=== PATIENT | male | born 1965 | race Caucasian/White ===

== ENCOUNTER 2017-01-24 10:19 | Emergency (ER) | payer MEDICAID ==
[2017-01-24] MEDS ORDERED: Aspirin 81 MG Tab.Chew PO ONE (10:33)
--- NOTE | 2017-01-24 10:33 | EDM.PDOC ---
ED HISTORY OF PRESENT ILLNESS - General Chief Complaint: Chest Pain Stated Complaint: [id number] CHEST PAINS 4-5 DAYS Time Seen by Provider: 01/24/17 10:25 Source of Information: Reports: Patient, Old records, RN, RN notes reviewed History Limitations: Reports: No limitations - History of Present Illness INITIAL COMMENTS - FREE TEXT/NARRATIVE: C/O chest pain on & off for 1 week. At time he reports experiencing some nausea and SOB. Denies cough, vomiting, fever/chills, palpitations, edema, or syncope/ dizziness. Pt states that he has no teeth and doens't wear dentures and can't chew his food well enough. He states that he frequently has food get stuck in his esophagus and has to work at it to get it to go down. He has not had to seek medical care for esophageal food impacts. Timing/Duration: Reports: Week(s): (1), Intermittent Location, General: Reports: chest Quality: Reports: Ache, Dull, Pressure Improves with: Reports: None Worsens with: Reports: None Associated Symptoms (General): Reports: no other symptoms - Related Data Allergies/ADRs: Allergies Allergy/AdvReac Type Severity Reaction Status Date / Time Penicillins Allergy Cannot Verified 01/24/17 10:24 Remember Home Meds: Home Meds Ibuprofen 01/24/17 [History] Past Medical History Neurological History: Reports: CVA Social & Family History - Family History Family Medical History: Noncontributory - Tobacco Use Smoking Status *Q: Former Smoker Tobacco Use Within Last Twelve Months: Cigarettes Years of Tobacco use: 15 Used Tobacco, but Quit: Yes Month Tobacco Last Used: August 2016 Second Hand Smoke Exposure: Yes - Caffeine Use Caffeine Use: Reports: Soda Other Caffeine Use: 2 cokes/day - Alcohol Use Days Per Week of Alcohol Use: 1 Number of Drinks Per Day: 6 Total Drinks Per Week: 6 - Recreational Drug Use Recreational Drug Use: No Drug Use in Last 12 Months: Yes Recreational Drug Type: Reports: Marijuana/Hashish Recreational Drug Use Frequency: Socially - Living Situation & Occupation Living situation: Reports: Occupation: employed ED ROS GENERAL - Review of Systems Review Of Systems: ROS reveals no pertinent complaints other than HPI. ED EXAM, GENERAL - Physical Exam Exam: See Below Exam Limited By: No limitations General Appearance: alert, WD/WN, no apparent distress Nose: normal inspection, normal mucosa, no blood Throat/Mouth: Normal lips, Normal gums, Normal oropharynx, Normal voice, No airway compromise. No: Normal teeth (no teeth) Head: atraumatic, normocephalic Neck: normal inspection, supple, non-tender, full range of motion. No: lymphadenopathy (L), lymphadenopathy (R), thyromegaly Respiratory/Chest: no respiratory distress, no accessory muscle use, chest non- tender, decreased breath sounds, crackles, prolonged expiration Cardiovascular: normal peripheral pulses, regular rate, rhythm, no edema, no gallop, no JVD, no murmur, no rub GI/Abdominal: normal bowel sounds, soft, non tender, no organomegaly, no distention, no abnormal bruit, no mass Back Exam: normal inspection, full range of motion, NT Extremities: normal inspection, normal range of motion, non-tender, normal capillary refill, no pedal edema Neurological: alert, oriented, CN II-XII intact, normal cognition, normal gait, no motor/sensory deficits Psychiatric: normal affect, normal mood Skin Exam: Warm, Dry, Intact, Normal color, No rash EKG INTERPRETATION EKG Date: 01/24/17 Time: 10:26 Rhythm: other (SR) Rate (beats/min): 57 [place]: normal P-wave: present QRS: normal ST-T: normal QT: normal Comparison: NA - no prior EKG EKG Interpretation Comments: No ischemic changes. Course - Vital Signs Last Recorded V/S: Last Vital Signs Temp 36.4 C 01/24/17 10:28 Pulse 51 L 01/24/17 13:55 Resp 18 01/24/17 13:55 BP 129/92 H 01/24/17 13:55 Pulse Ox 95 01/24/17 13:55 - Orders/Labs/Meds Orders: Active Orders 24 hr Category Date Time Status EKG 12 Lead [EKG Documentation Completion] [RC] STAT Care 01/24/17 10:33 Active Peripheral IV Care [RC] . DIRECTED Care 01/24/17 10:34 Active Chest wo Cont [CT] Stat Exams 01/24/17 11:18 Taken UGI wo KUB [CR] Stat Exams 01/24/17 11:15 Taken Sodium Chloride 0.9% [Saline Flush] Med 01/24/17 10:34 Active 10 ml FLUSH ASDIRECTED PRN Peripheral IV Insertion Adult [OM.PC] Stat Oth 01/24/17 10:33 Ordered Medication Orders Sodium Chloride (Saline Flush) 10 ml FLUSH ASDIRECTED PRN PRN Reason: Keep Vein Open Last Admin: 01/24/17 10:43 Dose: 10 ml Labs: Laboratory Tests 01/24/17 01/24/17 01/24/17 Range/Units 10:35 10:35 10:35 WBC 7.8 (5.0-10.0) 10^3/uL RBC 4.83 (4.6-6.2) 10^6/uL Hgb 15.2 (14.0-18.0) g/dL Hct 43.4 (40.0-54.0) % MCV 89.9 (80-100) fL MCH 31.5 (27.0-34.0) pg MCHC 35.0 (33.0-35.0) g/dL Plt Count 207 (150-450) 10^3/uL Neut % (Auto) 50.5 (42.2-75.2) % Lymph % (Auto) 33.2 (20.5-50.1) % [place] % (Auto) 10.6 H (2-8) % Eos % (Auto) 5.1 H (1.0-3.0) % Baso % (Auto) 0.6 (0.0-1.0) % PT 10.1 (9.0-12.0) SEC INR 1.0 (0.9-1.2) APTT 26.0 (22.0-34.0) SEC D-Dimer, Quantitative < 100 (0-400) ng/mL Sodium 137 (135-145) mmol/L Potassium 4.0 (3.6-5.0) mmol/L Chloride 104 (101-111) mmol/L Carbon Dioxide 27.0 (21.0-31.0) mmol/L Anion Gap 10.0 BUN 12 (7-18) mg/dL Creatinine 0.8 (0.6-1.3) mg/dL Est Cr Clr Drug Dosing 120.68 mL/min Estimated GFR (MDRD) > 60 BUN/Creatinine Ratio 15.00 Glucose 106 H (74-105) mg/dL Calcium 9.1 (8.4-10.2) mg/dl Total Bilirubin 0.7 (0.2-1.0) mg/dL AST 22 (10-42) IU/L ALT 39 (10-60) IU/L Alkaline Phosphatase 42 (42-121) IU/L Troponin I < 0.02 (0.00-0.02) ng/ml B-Natriuretic Peptide 24 (0-100) pg/ml Total Protein 6.8 (6.7-8.2) g/dl Albumin 4.1 (3.2-5.5) g/dl Globulin 2.7 Albumin/Globulin Ratio 1.52 Amylase 41 (28-100) U/L Lipase 24 (22-51) U/L Urine Color (YELLOW) Urine Appearance (CLEAR) Urine pH (5.0-9.0) Ur Specific Lipan (1.005-1.030) Urine Protein (NEGATIVE) Urine Glucose (UA) (NEGATIVE) Urine Ketones (NEGATIVE) Urine Occult Blood (NEGATIVE) Urine Nitrite (NEGATIVE) Urine Bilirubin (NEGATIVE) Urine Urobilinogen (0.2-1.0) mg/dL Ur Leukocyte Esterase (NEGATIVE) Urine RBC /HPF Urine WBC (0-5/HPF) /HPF Ur Epithelial Cells /HPF Urine Opiates Screen (NEGATIVE) Ur Oxycodone Screen (NEGATIVE) Urine Methadone Screen (NEGATIVE) Ur Barbiturates Screen (NEGATIVE) U Tricyclic Antidepress (NEGATIVE) Ur Phencyclidine Scrn (NEGATIVE) Ur Amphetamine Screen (NEGATIVE) U Methamphetamines Scrn (NEGATIVE) Urine MDMA Screen (NEGATIVE) U Benzodiazepines Scrn (NEGATIVE) Urine Cocaine Screen (NEGATIVE) U Marijuana (THC) Screen (NEGATIVE) 01/24/17 01/24/17 Range/Units 12:55 12:55 WBC (5.0-10.0) 10^3/uL RBC (4.6-6.2) 10^6/uL Hgb (14.0-18.0) g/dL Hct (40.0-54.0) % MCV (80-100) fL MCH (27.0-34.0) pg MCHC (33.0-35.0) g/dL Plt Count (150-450) 10^3/uL Neut % (Auto) (42.2-75.2) % Lymph % (Auto) (20.5-50.1) % [place] % (Auto) (2-8) % Eos % (Auto) (1.0-3.0) % Baso % (Auto) (0.0-1.0) % PT (9.0-12.0) SEC INR (0.9-1.2) APTT (22.0-34.0) SEC D-Dimer, Quantitative (0-400) ng/mL Sodium (135-145) mmol/L Potassium (3.6-5.0) mmol/L Chloride (101-111) mmol/L Carbon Dioxide (21.0-31.0) mmol/L Anion Gap BUN (7-18) mg/dL Creatinine (0.6-1.3) mg/dL Est Cr Clr Drug Dosing mL/min Estimated GFR (MDRD) BUN/Creatinine Ratio Glucose (74-105) mg/dL Calcium (8.4-10.2) mg/dl Total Bilirubin (0.2-1.0) mg/dL AST (10-42) IU/L ALT (10-60) IU/L Alkaline Phosphatase (42-121) IU/L Troponin I (0.00-0.02) ng/ml B-Natriuretic Peptide (0-100) pg/ml Total Protein (6.7-8.2) g/dl Albumin (3.2-5.5) g/dl Globulin Albumin/Globulin Ratio Amylase (28-100) U/L Lipase (22-51) U/L Urine Color Yellow (YELLOW) Urine Appearance Clear (CLEAR) Urine pH 7.5 (5.0-9.0) Ur Specific Lipan 1.015 (1.005-1.030) Urine Protein Negative (NEGATIVE) Urine Glucose (UA) Negative (NEGATIVE) Urine Ketones Negative (NEGATIVE) Urine Occult Blood Negative (NEGATIVE) Urine Nitrite Negative (NEGATIVE) Urine Bilirubin Negative (NEGATIVE) Urine Urobilinogen 0.2 (0.2-1.0) mg/dL Ur Leukocyte Esterase Negative (NEGATIVE) Urine RBC Not seen /HPF Urine WBC Not seen (0-5/HPF) /HPF Ur Epithelial Cells Rare /HPF Urine Opiates Screen Positive H (NEGATIVE) Ur Oxycodone Screen Negative (NEGATIVE) Urine Methadone Screen Negative (NEGATIVE) Ur Barbiturates Screen Negative (NEGATIVE) U Tricyclic Antidepress Negative (NEGATIVE) Ur Phencyclidine Scrn Negative (NEGATIVE) Ur Amphetamine Screen Negative (NEGATIVE) U Methamphetamines Scrn Negative (NEGATIVE) Urine MDMA Screen Negative (NEGATIVE) U Benzodiazepines Scrn Negative (NEGATIVE) Urine Cocaine Screen Negative (NEGATIVE) U Marijuana (THC) Screen Positive H (NEGATIVE) Meds: Medications Generic Name Dose Route Start Last Admin Trade Name Freq PRN Reason Stop Dose Admin Sodium Chloride 10 ml 01/24/17 10:34 01/24/17 10:43 Saline Flush FLUSH 10 ml ASDIRECTED PRN Administration Keep Vein Open Discontinued Medications Generic Name Dose Route Start Last Admin Trade Name Freq PRN Reason Stop Dose Admin Aspirin 324 mg 01/24/17 10:33 01/24/17 10:42 Aspirin PO 01/24/17 10:34 324 mg ONETIME ONE Administration Barium Sulfate 355 ml 01/24/17 11:18 01/24/17 12:27 Liquid E-Z Paque PO 01/24/17 11:19 355 ml PREPRO ONE Administration Morphine Sulfate 4 mg 01/24/17 11:10 01/24/17 11:17 Morphine IVPUSH 01/24/17 11:11 4 mg ONETIME ONE Administration Nitroglycerin 0.4 mg 01/24/17 10:34 01/24/17 11:03 Nitrostat SL 01/24/17 10:35 0.4 mg Q5M ONE Administration Ondansetron HCl 4 mg 01/24/17 11:10 01/24/17 11:15 Zofran IV 01/24/17 11:11 4 mg ONETIME ONE Administration - Radiology Interpretation Free Text/Narrative:: CXR: no acute process per Rad. report. UGI: no stricture, obstruction, or acute findings per Rad. report. CT Chest: no acute findings, see Rad. report. - Re-Assessments/Exams Free Text/Narrative Re-Assessment/Exam: 01/24/17 14:13 I explained the exam findings, results of all diagnostic tests, working diagnosis, and any potential or additionally considered diagnoses, treatment/ disposition plan, self/home care instructions, rational for the diagnosis/ treatment plan/disposition plan, anticipated course of illness, and follow up instructions to the pt and/or pts family or guardian. Pt has no teeth, and his dentures do not fit, so he doesn't wear them. He is unable to adequately chew his food, and has frequent episodes of self limiting esophageal food impaction which is likely contributing to his current Sx's. The pt and/or pts family or guardian acknowledges understanding of the above explanation(s), and of the signs and symptoms which should prompt the return of the pt to the ER should those or any other concerning symptoms develop. Departure - Departure Time of Disposition: 13:46 Disposition: Home, Self-Care 01 Condition: good Clinical Impression: Non-cardiac chest pain, Mechanical dysphagia Instructions: Nonspecific Chest Pain, [id number], Esophageal Spasm Forms: ED Department Discharge Additional Instructions: Soft diet, cut solid foods to small pieces, and chew food more thoroughly. Consider obtaining some well fitting dentures. Rx: Omeprazole 20mg: Take one tablet by mouth twice a day for 3 weeks. Follow up with your doctor in clinic in 1 to 2 weeks for recheck. Return to ER if worse at any time. - My Orders Last 24 Hours: My Active Orders 01/24/17 10:33 EKG 12 Lead [EKG Documentation Completion] [RC] STAT Peripheral IV Insertion Adult [OM.PC] Stat 01/24/17 10:34 Peripheral IV Care [RC] . DIRECTED Sodium Chloride 0.9% [Saline Flush] 10 ml FLUSH ASDIRECTED PRN 01/24/17 11:15 UGI wo KUB [CR] Stat 01/24/17 11:18 Chest wo Cont [CT] Stat - Assessment/Plan Last 24 Hours: My Active Orders 01/24/17 10:33 EKG 12 Lead [EKG Documentation Completion] [RC] STAT Peripheral IV Insertion Adult [OM.PC] Stat 01/24/17 10:34 Peripheral IV Care [RC] . DIRECTED Sodium Chloride 0.9% [Saline Flush] 10 ml FLUSH ASDIRECTED PRN 01/24/17 11:15 UGI wo KUB [CR] Stat 01/24/17 11:18 Chest wo Cont [CT] Stat
[2017-01-24] MEDS ORDERED: Sodium Chloride 0.9% 10 ML Syringe FLUSH PRN (10:34)
[2017-01-24] MEDS: Nitroglycerin 0.4 MG Tab.SL SL ONE ×2 (10:48→11:03)
[2017-01-24 10:58] LABS: CHLORIDE,CL 104 mmol/L (101-111); SODIUM,NA 137 mmol/L (135-145)
[2017-01-24] MEDS ORDERED: Ondansetron 4 MG/2 ML SDV IV ONE (11:10)
[2017-01-24] MEDS ORDERED: Morphine 4 MG/ML Syringe IVPUSH ONE (11:10)
[2017-01-24] MEDS ORDERED: Barium Sulfate 60% w/v Susp 355 ML Bottle PO ONE (11:18)
--- NOTE | 2017-01-24 12:25 | CR ---
CLINICAL HISTORY: 51-year-old male (long-term "smoker") experienced chest pain associated with swall owing cheeseburger. Hernia? Stricture? Esophageal neoplasm? AP portable chest film negative. Normal cardiac silhouette without alveolar edema or dependent effusion. Normal ectasia aorta. No lung mass, hilar lymphadenopathy or focal lobar pneumonia. No atelectasis/collapse. No pneumothor ax.
[2017-01-24 13:56] VITALS: BP 129/92
--- NOTE | 2017-01-24 15:35 | CT ---
CLINICAL HISTORY: 51 year old male "long-term smoker" with cough, dysphagia and chest pain associate d with "food impactions (cheeseburger recently)" lower chest. Barium esophagram reveals dysmotility but o/w unremarkable, i.e., no ulcerations, mass or stricture lesions esophagus. SCAN TECHNIQUE: Volume acquisition of data from the chest (thorax, mediastinum and lung pereyra) obta ined without oral or IV contrast while the patient was lying supine on the Siemens multislice CT [place], [place]. All data archived in the PACS system for [employer], reformatting and study (lung/mediastinal windows). INTERPRETATION: 1. Normal cardiac silhouette. No sign of pericardial effusion, alveolar edema or dependent pleural e ffusion. Normal caliber and course of the thoracic aorta. 2. Barium traces the normal esophagus. No sign of hiatus hernia, mediastinal mass or lymphadenopathy . Kyphosis, multilevel disc disease and hypertrophic spondylosis dorsal spine. 3. Subtle peribronchial "cuffing" suggesting reactive airway disease (smoker) but no parenchymal crystal g nodule or mass lesion, hilar lymphadenopathy or focal lobar pneumonia. 4. Atelectasis posteriorly right lower lobe. 5. No pneumothorax. CONCLUSION: Bronchitis. No sign of mediastinal mass or malignant lung lesion. Atelectasis and peribr onchial "cuffing" but no bullous disease or air trapping.
--- NOTE | 2017-01-25 11:37 | CR ---
Clinical history: 51-year-old male with recurrent, self-limited, "food impactions" and chest pain. Interpretation: Normal barium bolus and swallow initiated but generally poor peristalsis with some t ertiary contractions. No sign of intrinsic/extrinsic esophageal mass lesion, Zenker's/traction/pulsi on diverticula, mucosal ulceration or stricture lesion. Subtle hiatus hernia produce with vigorous Valsalva maneuver but no free gastroesophageal reflux. No barium aspiration. CONCLUSION: Suggestion esophageal dysmotility. No sign of mucosal ulceration, mass or stricture lesion.
--- NOTE | 2017-01-31 12:24 | EKG ---
01/24/2017 - TANESHA BRANNON I reviewed the EKG and agree with the machine's reading. [facility] /[id number]
== END 2017-01-24 14:05 | disposition home or self-care (01) ==
LOC: DL.ED 10:19
DX: R07.89 Other chest pain (principal); R13.19 Other dysphagia; Z88.0 Allergy status to penicillin; Z86.73 Personal history of transient ischemic attack (TIA), and cerebral infarction without residual deficits; Z87.891 Personal history of nicotine dependence
CPT/HCPCS: 36415; 71010; 71250; 74240; 80053; 80305; 81001; 82150; 83690; 83880; 84484; 85025; 85379; 85610; 85730; 93005; 96374; 96375; 99285; A9270; J2270; J2405; J7050

== ENCOUNTER 2018-01-29 11:15 | Emergency (ER) | payer MEDICAID ==
[2018-01-29 11:22] VITALS: BP 136/113
[2018-01-29] MEDS ORDERED: Albuterol/Ipratropium 3.0-0.5 MG/3 ML Neb Soln ONE (11:33)
[2018-01-29] MEDS ORDERED: Albuterol/Ipratropium 3.0-0.5 MG/3 ML Neb Soln NEB ONE (11:33)
[2018-01-29] MEDS ORDERED: Sodium Chloride 0.9% 10 ML Syringe FLUSH PRN (12:12)
[2018-01-29] MEDS ORDERED: LORazepam 2 MG/ML Syringe IVPUSH ONE (12:12)
--- NOTE | 2018-01-29 12:20 | EDM.PDOC ---
ED HPI GENERAL MEDICAL PROBLEM - General Chief Complaint: Respiratory Problem Stated Complaint: [id number] NOT FEELING WELL HAD COLD SOB Time Seen by Provider: 01/29/18 12:10 Source of Information: Reports: Patient, Family, RN, RN Notes Reviewed History Limitations: Reports: No Limitations - History of Present Illness INITIAL COMMENTS - FREE TEXT/NARRATIVE: Pt presents to the ER with his with c/o cold, chest congestion, and shortness of breath. The patient states he was a previous smoker but quit 2 years ago. Patient states he has had some fever and chills, denies N/V/D. He states he does have some chest pains with coughing, which he has been doing quite a lot of recently. Onset: Gradual Chest Pain Score (Numeric/FACES): 7 - Related Data Allergies Allergy/AdvReac Type Severity Reaction Status Date / Time Penicillins Allergy Cannot Verified 01/24/17 10:24 Remember Home Meds: Home Meds Ibuprofen 01/24/17 [History] Past Medical History Neurological History: Reports: CVA - Past Surgical History HEENT Surgical History: Reports: Adenoidectomy, Tonsillectomy Musculoskeletal Surgical History: Reports: Other (See Below) Other Musculoskeletal Surgeries/Procedures:: right knee reconstruction Social & Family History - Family History Family Medical History: Noncontributory - Tobacco Use Smoking Status *Q: Former Smoker Years of Tobacco use: 30 Packs/Tins Daily: 1 Used Tobacco, but Quit: Yes Month/Year Tobacco Last Used: 2015 - Caffeine Use Caffeine Use: Reports: Soda, Tea Other Caffeine Use: 2 cokes/day - Alcohol Use Days Per Week of Alcohol Use: 1 Number of Drinks Per Day: 6 Total Drinks Per Week: 6 - Recreational Drug Use Recreational Drug Use: Yes Recreational Drug Type: Reports: Marijuana/Hashish - Living Situation & Occupation Living situation: Reports: Occupation: Employed ED ROS GENERAL - Review of Systems Review Of Systems: ROS reveals no pertinent complaints other than HPI. ED EXAM, GENERAL - Physical Exam Exam: See Below Exam Limited By: No Limitations General Appearance: Alert, WD/WN, Mild Distress Eye Exam: Bilateral Eye: EOMI, Normal Inspection Ears: Normal External Exam, Hearing Grossly Normal Nose: Normal Inspection Throat/Mouth: Normal Inspection, Normal Lips, Normal Teeth, Normal Gums, Normal Oropharynx, Normal Voice, No Airway Compromise Head: Atraumatic, Normocephalic Neck: Normal Inspection, Supple, Non-Tender, Full Range of Motion Respiratory/Chest: Lungs Clear, Normal Breath Sounds, No Accessory Muscle Use, Chest Non-Tender, Other (Pt hyperventilating at times) Cardiovascular: Normal Peripheral Pulses, Regular Rate, Rhythm, No Edema, No Gallop, No JVD, No Murmur, No Rub Peripheral Pulses: 2+: Radial (L), Radial (R) GI/Abdominal: Normal Bowel Sounds, Soft, Non-Tender, No Organomegaly, No Distention, No Abnormal Bruit, No Mass, Pelvis Stable (Male) Exam: Other (PT c/o pain in the right groin area, some erythema across the lower pelvic area above the penis in the pubic area/hair. ) Rectal (Males) Exam: Deferred Back Exam: Normal Inspection, Full Range of Motion Extremities: Normal Inspection, Normal Range of Motion, Non-Tender, Normal Capillary Refill, No Pedal Edema Neurological: Alert, Oriented, CN II-XII Intact, Normal Cognition, Normal Gait, Normal Reflexes, No Motor/Sensory Deficits Psychiatric: Anxious Skin Exam: Warm, Dry, Intact, Normal Color, No Rash Lymphatic: No Adenopathy EKG INTERPRETATION EKG Date: 01/29/18 Time: 11:33 Rhythm: NSR Rate (Beats/Min): 78 [place]: Normal P-Wave: Present QRS: Normal ST-T: Normal QT: Normal Comparison: No Change Course - Vital Signs Last Recorded V/S: Last Vital Signs Temp 97.3 F 01/29/18 11:21 Pulse 85 01/29/18 12:03 Resp 20 01/29/18 12:03 BP 136/113 H 01/29/18 11:21 Pulse Ox 100 01/29/18 12:03 - Orders/Labs/Meds Orders: Active Orders 24 hr Category Date Time Status EKG Documentation Completion [RC] STAT Care 01/29/18 11:32 Active Peripheral IV Care [RC] . DIRECTED Care 01/29/18 12:12 Active RT Aerosol Therapy [RC] ASDIRECTED Care 01/29/18 11:33 Active INFLUENZA A+B AG SCREEN [RM] Stat Lab 01/29/18 11:47 Ordered Peripheral IV Insertion Adult [OM.PC] Stat Oth 01/29/18 12:12 Ordered Labs: Laboratory Tests 01/29/18 01/29/18 01/29/18 Range/Units 11:50 11:50 11:50 WBC 11.1 H (5.0-10.0) 10^3/uL RBC 5.94 (4.6-6.2) 10^6/uL Hgb 18.9 H D (14.0-18.0) g/dL Hct 53.0 (40.0-54.0) % MCV 89.2 (80-100) fL MCH 31.8 (27.0-34.0) pg MCHC 35.7 H (33.0-35.0) g/dL Plt Count 265 (150-450) 10^3/uL Neut % (Auto) 63.8 (42.2-75.2) % Lymph % (Auto) 25.3 (20.5-50.1) % [place] % (Auto) 8.9 H (2-8) % Eos % (Auto) 1.5 (1.0-3.0) % Baso % (Auto) 0.5 (0.0-1.0) % D-Dimer, Quantitative < 100 (0-400) ng/mL Sodium 138 (135-145) mmol/L Potassium 4.0 (3.6-5.0) mmol/L Chloride 104 (101-111) mmol/L Carbon Dioxide 23.0 (21.0-31.0) mmol/L Anion Gap 15.0 BUN 14 (7-18) mg/dL Creatinine 1.0 (0.6-1.3) mg/dL Est Cr Clr Drug Dosing 92.69 mL/min Estimated GFR (MDRD) > 60 BUN/Creatinine Ratio 14.00 Glucose 117 H (74-105) mg/dL Calcium 10.5 H (8.4-10.2) mg/dl Total Bilirubin 1.3 H (0.2-1.0) mg/dL AST 28 (10-42) IU/L ALT 36 (10-60) IU/L Alkaline Phosphatase 66 (42-121) IU/L Troponin I < 0.02 (0.00-0.02) ng/ml Total Protein 8.7 H (6.7-8.2) g/dl Albumin 5.0 (3.2-5.5) g/dl Globulin 3.7 Albumin/Globulin Ratio 1.35 Meds: Medications Discontinued Medications Generic Name Dose Route Start Last Admin Trade Name Micaela PRN Reason Stop Dose Admin Albuterol/Ipratropium 3 ml 01/29/18 11:33 01/29/18 11:35 Duoneb 3.0-0.5 Mg/3 Ml NEB 01/29/18 11:34 3 ml ONETIME ONE Administration Albuterol/Ipratropium Confirm 01/29/18 11:33 01/29/18 12:40 Duoneb 3.0-0.5 Mg/3 Ml Administered 01/29/18 11:34 Not Given Dose 3 ml .ROUTE .STK-MED ONE Lorazepam 1 mg 01/29/18 12:12 01/29/18 12:54 Ativan IVPUSH 01/29/18 12:13 1 mg ONETIME ONE Administration Sodium Chloride 10 ml 01/29/18 12:12 01/29/18 12:47 Saline Flush FLUSH 10 ml ASDIRECTED PRN Administration Keep Vein Open - Radiology Interpretation Free Text/Narrative:: Chest xray: IMPRESSION: No acute pulmonary disease. Thank you for allowing us to participate in the care of your patient. Dictated and Authenticated by: Michelle Weldon MD 01/29/2018 12:40 PM Central Time ([place] & [place]) See rad report Departure - Departure Time of Disposition: 13:34 Disposition: Home, Self-Care 01 Condition: Fair Clinical Impression: Viral upper respiratory infection - Discharge Information Instructions: Shortness of Breath, Adult, [id number], Viral Respiratory Infection, [id number] Referrals: Mehdi Sahni MD [Primary Care Provider] - Forms: ED Department Discharge Additional Instructions: Follow up with your primary care facility. Use saline nasal irrigation May use Tylenol and/or ibuprofen as directed for pain/fever - My Orders Last 24 Hours: My Active Orders 01/29/18 11:32 EKG Documentation Completion [RC] STAT 01/29/18 11:33 RT Aerosol Therapy [RC] ASDIRECTED 01/29/18 11:47 INFLUENZA A+B AG SCREEN [RM] Stat 01/29/18 12:12 Peripheral IV Care [RC] . DIRECTED Peripheral IV Insertion Adult [OM.PC] Stat - Assessment/Plan Last 24 Hours: My Active Orders 01/29/18 11:32 EKG Documentation Completion [RC] STAT 01/29/18 11:33 RT Aerosol Therapy [RC] ASDIRECTED 01/29/18 11:47 INFLUENZA A+B AG SCREEN [] Stat 01/29/18 12:12 Peripheral IV Care [RC] . DIRECTED Peripheral IV Insertion Adult [OM.PC] Stat
[2018-01-29 12:24] LABS: CHLORIDE,CL 104 mmol/L (101-111); SODIUM,NA 138 mmol/L (135-145)
--- NOTE | 2018-02-01 07:19 | EKG ---
01/29/2018- TANESHA BRANNON - FINDINGS: A 12-lead EKG shows normal sinus rhythm with heart rate of 78. No significant ST elevation or ST depression noted on this 12-lead EKG except for nonspecific ST-T wave changes noted on lead III and aVF. [facility] /[id number]
== END 2018-01-29 13:48 | disposition home or self-care (01) ==
LOC: DL.ED 11:15
DX: J06.9 Acute upper respiratory infection, unspecified (principal); Z88.0 Allergy status to penicillin; Z87.891 Personal history of nicotine dependence
CPT/HCPCS: 36415; 71046; 80053; 84484; 85025; 85379; 87804; 93005; 94640; 96374; 99285; J2060; J7050

== ENCOUNTER 2020-01-07 05:49 | Day surgery (SDC) | payer MEDICAID ==
[2020-01-07] MEDS ORDERED: Midazolam 1 MG/ML 2 ML SDV IV ONE ×7 (05:50→07:10)
[2020-01-07] MEDS ORDERED: fentaNYL 100 MCG/2 ML SDV IV ONE ×5 (05:50→07:13)
[2020-01-07] MEDS ORDERED: fentaNYL 100 MCG/2 ML SDV ONE (06:11)
[2020-01-07] MEDS ORDERED: Midazolam 1 MG/ML 2 ML SDV ONE (06:11)
[2020-01-07] MEDS ORDERED: Dextrose 5%-0.45% NaCl 1,000 ML IV SCH ×2 (06:15→07:00)
[2020-01-07] MEDS ORDERED: Sodium Chloride 0.9% 10 ML Syringe FLUSH PRN (06:59)
--- NOTE | 2020-01-07 07:55 | OR ---
DATE: 01/07/2020 PROCEDURE: Total colonoscopy. INSTRUMENT USED: [id number]-H190DL Olympus video colonoscope. PREMEDICATIONS: Fentanyl 150 mcg intravenous, Versed 4 mg intravenous, nasal O2 cannula. The procedure was done under pulse oximetry, BP recording, and registered nurse cardiac. INDICATION: The patient with rectal bleeding and recent CT of the abdomen suggestive of lesion in the cecum. Colonoscopic examination is done for detection of any polypoid lesions and removal, endoscopic hemostasis therapy if needed. DESCRIPTION OF PROCEDURE: Initial rectal exam showed some mild diffuse tenderness. Rigid anoscopy showed moderate-sized internal hemorrhoids without bleeding from them. The colonoscope was passed with ease. Numerous scattered diverticula were noted in the distal left colon along with deformity. The scope was passed with ease up to the ileocecal area. Photographs were taken of the normal-appearing cecum identified by double-bulged ileocecal folds. No bleeding was noted from any of the visualized areas at the commencement of the examination. The bowel preparation was found to be adequate. [place] scale 2 in the right and left colon, scale 3 in the transverse colon, total score 7. No stricture. No vascular ectasia. No large isolated ulceration seen. No evidence of diffuse inflammatory bowel disease in the form of friability, contact bleeding, or ulcerations. No polyp or tumor mass identified. Probing the proximal sides of folds and flexures using adequate distention and clearing up the stool material, withdrawal of the scope was made cecum to rectum time over 6 minutes. No bleeding was noted from any of the visualized areas at the completion of the examination. IMPRESSION: 1. Internal hemorrhoids. 2. Diverticulosis. The patient tolerated procedure well. [facility] /[id number]
[2020-01-07 09:08] VITALS: PULSE 53
[2020-01-07 09:36] VITALS: BP 126/91
== END 2020-01-07 09:24 | disposition home or self-care (01) ==
LOC: DL.ENDO 05:49
PROVIDERS: ATTEND Internal Medicine Gastroenterology
DX: K64.8 Other hemorrhoids (principal); K57.30 Diverticulosis of large intestine without perforation or abscess without bleeding; I10 Essential (primary) hypertension; M54.5 Low back pain; K40.90 Unilateral inguinal hernia, without obstruction or gangrene, not specified as recurrent; F12.90 Cannabis use, unspecified, uncomplicated; Z88.0 Allergy status to penicillin; Z87.438 Personal history of other diseases of male genital organs; Z86.73 Personal history of transient ischemic attack (TIA), and cerebral infarction without residual deficits; Z98.890 Other specified postprocedural states; Z90.89 Acquired absence of other organs
CPT/HCPCS: 45378; J2250; J3010; J7042; G0121

== ENCOUNTER 2020-01-21 12:58 | Emergency (ER) | payer MEDICAID ==
--- NOTE | 2020-01-21 13:09 | EDM.PDOC ---
ED HPI GENERAL MEDICAL PROBLEM - General Chief Complaint: Abdominal Pain Stated Complaint: HERNIA HAS GOTTEN REALLY BAD HE SAID Time Seen by Provider: 01/21/20 13:09 Source of Information: Reports: Patient, Old Records, RN, RN Notes Reviewed History Limitations: Reports: No Limitations - History of Present Illness INITIAL COMMENTS - FREE TEXT/NARRATIVE: Pt presents to ER from home by POV with c/o worsening pain from his left inguinal hernia. Pt states he was all set up to have surgery for hernia repair, but the surgery was cancelled due to Johnson virus restrictions. He denies abdominal distention, fever, chills, N/V, diarrhea, or any urinary symptoms. He admits to constipation since having a colonoscopy about 2 weeks ago. Pt rates the pain 05/29. Nothing alleviates or aggravates the pain. Onset: Other (a few months ago) Duration: Getting Worse Location: Reports: Other (Left groin) Quality: Reports: Same as Previous Episode Severity: Severe Improves with: Reports: None Worsens with: Reports: None Associated Symptoms: Reports: No Other Symptoms - Related Data Allergies Allergy/AdvReac Type Severity Reaction Status Date / Time Penicillins Allergy Anaphylactic Verified 01/07/20 05:59 Shock Home Meds: Home Meds traMADol [Ultram] 50 mg PO TID PRN 04/26/19 [History] Tamsulosin [Flomax] 0.4 mg PO BEDTIME 01/04/20 [History] amLODIPine [Norvasc] 5 mg PO DAILY 01/04/20 [History] Past Medical History HEENT History: Reports: None Cardiovascular History: Reports: Hypertension Respiratory History: Reports: None, Other (See Below) Other Respiratory History: pleural effusion 1990 Gastrointestinal History: Reports: Other (See Below) Other Gastrointestinal History: dyspahgia. INGUINAL HERNIA Genitourinary History: Reports: Prostate Disorder, Other (See Below) Other Genitourinary History: epididymitis, right. acute prostatitis. persistent right testicular pain Musculoskeletal History: Reports: Arthritis, Other (See Below) Other Musculoskeletal History: lateral epicondylitis of right elbow. neuritis of right ulnar nerve Neurological History: Reports: CVA Other Neuro History: 24 YEARS AGO Psychiatric History: Reports: Addiction, Other (See Below) Other Psychiatric History: nicotine abuse Endocrine/Metabolic History: Reports: Other (See Below) Other Endocrine/Metabolic History: elevated fasting glucose Hematologic History: Reports: None Immunologic History: Reports: None Oncologic (Cancer) History: Reports: None Dermatologic History: Reports: None - Infectious Disease History Infectious Disease History: Reports: Chicken Pox, Mumps - Past Surgical History HEENT Surgical History: Reports: Adenoidectomy, Tonsillectomy, Other (See Below) Other HEENT Surgeries/Procedures: dental operation (2015) Cardiovascular Surgical History: Reports: None Respiratory Surgical History: Reports: None GI Surgical History: Reports: Colonoscopy Male Surgical History: Reports: Circumcision Neurological Surgical History: Reports: Other (See Below) Other Neurological Surgeries/Procedures: neck surgery (age 1) TO REMOVE BLOOD CLOT IN NECK Musculoskeletal Surgical History: Reports: Arthroscopic Knee, Other (See Below) Other Musculoskeletal Surgeries/Procedures:: right knee reconstruction Oncologic Surgical History: Reports: None Dermatological Surgical History: Reports: None Social & Family History - Family History Family Medical History: Noncontributory - Caffeine Use Caffeine Use: Reports: Soda, Tea Other Caffeine Use: 3 cokes/day - Living Situation & Occupation Living situation: Reports: Occupation: Employed ED ROS GENERAL - Review of Systems Review Of Systems: Comprehensive ROS is negative, except as noted in HPI. ED EXAM, GI/ABD - Physical Exam Exam: See Below Exam Limited By: No Limitations General Appearance: Alert, WD/WN, No Apparent Distress Head: Atraumatic, Normocephalic Respiratory/Chest: No Respiratory Distress, Lungs Clear, Normal Breath Sounds, No Accessory Muscle Use, Chest Non-Tender Cardiovascular: Regular Rate, Rhythm GI/Abdominal Exam: Normal Bowel Sounds, Soft (Male) Exam: Hernia (Left inguinal region acutely tender, small amt. of fullness, no palpable mass.). No: Inguinal Lymphadenopathy, Rash Rectal (Males) Exam: Deferred Back Exam: Normal Inspection Extremities: Normal Inspection Neurological: Alert, Oriented, No Motor/Sensory Deficits Psychiatric: Normal Mood Skin Exam: Warm, Dry, Intact Course - Vital Signs Last Recorded V/S: Last Vital Signs Temp 97.6 F 01/21/20 13:18 Pulse 68 01/21/20 13:18 Resp 18 01/21/20 13:18 BP 183/97 H 01/21/20 13:18 Pulse Ox 99 01/21/20 13:18 - Orders/Labs/Meds Orders: Active Orders 24 hr Category Date Time Status Peripheral IV Care [RC] . DIRECTED Care 01/21/20 13:13 Active Abdomen Pelvis wo Cont [CT] Stat Exams 01/21/20 13:51 Taken Sodium Chloride 0.9% [Saline Flush] Med 01/21/20 13:13 Active 10 ml FLUSH ASDIRECTED PRN Peripheral IV Insertion Adult [OM.PC] Stat Oth 01/21/20 13:13 Ordered Medication Orders Sodium Chloride (Saline Flush) 10 ml FLUSH ASDIRECTED PRN PRN Reason: Keep Vein Open Last Admin: 01/21/20 13:46 Dose: 10 ml Labs: Laboratory Tests 01/21/20 01/21/20 01/21/20 Range/Units 13:21 13:21 13:21 WBC 9.4 (5.0-10.0) 10^3/uL RBC 4.59 L (4.6-6.2) 10^6/uL Hgb 14.6 D (14.0-18.0) g/dL Hct 41.6 (40.0-54.0) % MCV 90.6 (80-100) fL MCH 31.8 (27.0-34.0) pg MCHC 35.1 H (33.0-35.0) g/dL Plt Count 200 (150-450) 10^3/uL Neut % (Auto) 49.4 (42.2-75.2) % Lymph % (Auto) 30.4 (20.5-50.1) % Mcclain % (Auto) 13.0 H (2-8) % Eos % (Auto) 6.8 H (1.0-3.0) % Baso % (Auto) 0.4 (0.0-1.0) % Sodium 139 (136-145) mmol/L Potassium 4.1 (3.5-5.1) mmol/L Chloride 102 (98-107) mmol/L Carbon Dioxide 31 (21-32) mmol/L Anion Gap 10.1 (7-13) mEq/L BUN 8 (7-18) mg/dL Creatinine 0.86 (0.70-1.30) mg/dL Est Cr Clr Drug Dosing 105.27 mL/min Estimated GFR (MDRD) > 60 BUN/Creatinine Ratio 9.3 (No establ ref range) Glucose 93 (74-99) mg/dL Lactic Acid 1.7 (0.4-2.0) mmol/L Calcium 8.7 (8.5-10.1) mg/dL Total Bilirubin 0.8 (0.2-1.0) mg/dL AST 20 (15-37) U/L ALT 46 (16-63) U/L Alkaline Phosphatase 72 (46-116) U/L C-Reactive Protein 1.8 H (0.0-0.9) mg/dL Total Protein 6.9 (6.4-8.2) g/dL Albumin 3.8 (3.4-5.0) g/dL Globulin 3.1 Albumin/Globulin Ratio 1.2 Urine Color (YELLOW) Urine Appearance (CLEAR) Urine pH (5.0-9.0) Ur Specific Sullivan (1.005-1.030) Urine Protein (NEGATIVE) Urine Glucose (UA) (NEGATIVE) Urine Ketones (NEGATIVE) Urine Occult Blood (NEGATIVE) Urine Nitrite (NEGATIVE) Urine Bilirubin (NEGATIVE) Urine Urobilinogen (0.2-1.0) mg/dL Ur Leukocyte Esterase (NEGATIVE) 01/21/20 Range/Units 14:06 WBC (5.0-10.0) 10^3/uL RBC (4.6-6.2) 10^6/uL Hgb (14.0-18.0) g/dL Hct (40.0-54.0) % MCV (80-100) fL MCH (27.0-34.0) pg MCHC (33.0-35.0) g/dL Plt Count (150-450) 10^3/uL Neut % (Auto) (42.2-75.2) % Lymph % (Auto) (20.5-50.1) % Mcclain % (Auto) (2-8) % Eos % (Auto) (1.0-3.0) % Baso % (Auto) (0.0-1.0) % Sodium (136-145) mmol/L Potassium (3.5-5.1) mmol/L Chloride (98-107) mmol/L Carbon Dioxide (21-32) mmol/L Anion Gap (7-13) mEq/L BUN (7-18) mg/dL Creatinine (0.70-1.30) mg/dL Est Cr Clr Drug Dosing mL/min Estimated GFR (MDRD) BUN/Creatinine Ratio (No establ ref range) Glucose (74-99) mg/dL Lactic Acid (0.4-2.0) mmol/L Calcium (8.5-10.1) mg/dL Total Bilirubin (0.2-1.0) mg/dL AST (15-37) U/L ALT (16-63) U/L Alkaline Phosphatase (46-116) U/L C-Reactive Protein (0.0-0.9) mg/dL Total Protein (6.4-8.2) g/dL Albumin (3.4-5.0) g/dL Globulin Albumin/Globulin Ratio Urine Color Yellow (YELLOW) Urine Appearance Clear (CLEAR) Urine pH 8.5 (5.0-9.0) Ur Specific Sullivan 1.020 (1.005-1.030) Urine Protein Negative (NEGATIVE) Urine Glucose (UA) Negative (NEGATIVE) Urine Ketones Negative (NEGATIVE) Urine Occult Blood Negative (NEGATIVE) Urine Nitrite Negative (NEGATIVE) Urine Bilirubin Negative (NEGATIVE) Urine Urobilinogen 0.2 (0.2-1.0) mg/dL Ur Leukocyte Esterase Negative (NEGATIVE) Meds: Medications Generic Name Dose Route Start Last Admin Trade Name Freq PRN Reason Stop Dose Admin Sodium Chloride 10 ml 01/21/20 13:13 01/21/20 13:46 Saline Flush FLUSH 10 ml ASDIRECTED PRN Administration Keep Vein Open Discontinued Medications Generic Name Dose Route Start Last Admin Trade Name Freq PRN Reason Stop Dose Admin Hydromorphone HCl 1 mg 01/21/20 13:13 01/21/20 13:45 Dilaudid IVPUSH 01/21/20 13:14 1 mg ONETIME ONE Administration Hydromorphone HCl 1 mg 01/21/20 14:54 01/21/20 15:02 Dilaudid IVPUSH 01/21/20 14:55 1 mg ONETIME ONE Administration Sodium Chloride 1,000 mls @ 999 mls/hr 01/21/20 13:32 01/21/20 13:44 Normal Saline IV 01/21/20 14:32 999 mls/hr .BOLUS ONE Administration Iopamidol 100 ml 01/21/20 13:49 Isovue-300 (61%) IVPUSH 01/21/20 13:50 ONETIME ONE Ondansetron HCl 4 mg 01/21/20 13:13 01/21/20 13:45 Zofran IV 01/21/20 13:14 4 mg ONETIME ONE Administration - Radiology Interpretation Free Text/Narrative:: CT Abd/Pelvis: no findings to explain severe left inguinal pain, see Rad. report. Departure - Departure Time of Disposition: 15:38 Disposition: Home, Self-Care 01 Condition: Fair Clinical Impression: Severe left inguinal pain - Discharge Information *PRESCRIPTION DRUG MONITORING PROGRAM REVIEWED*: No *COPY OF PRESCRIPTION DRUG MONITORING REPORT IN PATIENT RAMA: No Instructions: Inguinal Hernia, Adult, Acute Pain, Adult Forms: ED Department Discharge Additional Instructions: Rx: Hydrocodone APAP 5mg/325mg *Do not drive while under the influence of this medication. Use a stool softener or laxative while taking this medication to prevent constipation. Follow up with your surgeon or primary doctor for further evaluation. Sepsis Event Note - Focused Exam Vital Signs: Vital Signs Temp Pulse Resp BP Pulse Ox 01/21/20 13:18 97.6 F 68 18 183/97 H 99 Date Exam was Performed: 01/21/20 Time Exam was Performed: 15:37 - My Orders Last 24 Hours: My Active Orders 01/21/20 13:13 Peripheral IV Care [RC] . DIRECTED Sodium Chloride 0.9% [Saline Flush] 10 ml FLUSH ASDIRECTED PRN Peripheral IV Insertion Adult [OM.PC] Stat 01/21/20 13:51 Abdomen Pelvis wo Cont [CT] Stat - Assessment/Plan Last 24 Hours: My Active Orders 01/21/20 13:13 Peripheral IV Care [RC] . DIRECTED Sodium Chloride 0.9% [Saline Flush] 10 ml FLUSH ASDIRECTED PRN Peripheral IV Insertion Adult [OM.PC] Stat 01/21/20 13:51 Abdomen Pelvis wo Cont [CT] Stat
[2020-01-21] MEDS ORDERED: Sodium Chloride 0.9% 10 ML Syringe FLUSH PRN (13:13)
[2020-01-21] MEDS ORDERED: HYDROmorphone 1 MG/ML Syringe IVPUSH ONE ×2 (13:13→14:54)
[2020-01-21] MEDS ORDERED: Ondansetron 4 MG/2 ML SDV IV ONE (13:13)
[2020-01-21 13:20] VITALS: BP 183/97; PULSE 68
[2020-01-21] MEDS ORDERED: Sodium Chloride 0.9% 1,000 ML IV ONE (13:32)
[2020-01-21 13:44] LABS: ANION GAP 10.1 mEq/L (7-13); CHLORIDE,CL 102 mmol/L (98-107); SODIUM,NA 139 mmol/L (136-145)
[2020-01-21] MEDS ORDERED: Iopamidol 612 MG/ML 100 ML Bottle IVPUSH ONE (13:49)
--- NOTE | 2020-01-21 17:22 | CT ---
EXAMINATION: Abdomen Pelvis wo Cont SEX: Male AGE: 54 years CLINICAL HISTORY: 54-year-old, 185 pound male with severe LEFT GROIN PAIN (history "inguinal hernia"). This hypertensive male smoker also noted to have "diverticulosis left colon" on [address] scan and "abnormal prostate gland, sigmoid diverticulosis with suspicious appearance of cecum" reported on more recent CT exam 26 December 2019. SCAN TECHNIQUE: Volume acquisition of data from the abdomen and pelvis obtained without oral or IV contrast while patient was lying supine on the Siemens multislice scanner [place], [place]. All data archived in the PACS system for storage, reformatting axial/sagittal/coronal planes and study. INTERPRETATION: 1. Bibasilar platelike atelectasis involving the posterior segment both lower lobes. Normal caliber aortoiliac vessels. 2. Diverticulosis sigmoid colon without current signs of acute inflammation or peritonitis, i.e. no inflammatory "dirty" peritoneal fat, abscess or signs of mechanical bowel obstruction. Stool otherwise unremarkable cecum and right colon. 3. No sign of ventral wall or inguinal hernia. No bowel incarceration. 4. No pelvic/abdominal mass lesion, signs of mesenteric/retroperitoneal, bowel obstruction, ascites or free intraperitoneal air. 5. Normal reniform size, axis and configuration. No cortical mass lesion (cystic or solid) identified on these unenhanced images. No sign of nephrolithiasis or obstructive uropathy. Marginal spondylosis lumbar spine. 6. Inhomogeneously dense enlarged prostate gland with numerous central calcifications. Chronic prostatitis? 7. Gallbladder, unenhanced liver, stomach, spleen, pancreas and adrenal glands unremarkable. CONCLUSION: Sigmoid diverticulosis. Abnormal prostate gland. Bibasilar lower lobe atelectasis. No inguinal hernias.
== END 2020-01-21 15:48 | disposition home or self-care (01) ==
LOC: DL.ED 12:58
DX: R10.32 Left lower quadrant pain (principal); I10 Essential (primary) hypertension; M19.90 Unspecified osteoarthritis, unspecified site; Z86.73 Personal history of transient ischemic attack (TIA), and cerebral infarction without residual deficits; Z88.0 Allergy status to penicillin; Z79.899 Other long term (current) drug therapy
CPT/HCPCS: 36415; 74176; 80053; 81003; 83605; 85025; 86140; 96374; 96375; 96376; 99284; J1170; J2405; J7030

== ENCOUNTER 2022-08-23 11:50 | Emergency (ER) | payer MEDICAID ==
[2022-08-23 12:25] VITALS: BP 185/115; PULSE 67
== END 2022-08-23 13:51 | disposition home or self-care (01) ==
LOC: DL.ED 11:50
DX: N45.1 Epididymitis (principal); I10 Essential (primary) hypertension; Z88.0 Allergy status to penicillin
CPT/HCPCS: 81003; 99284

== ENCOUNTER 2024-06-25 08:45 | Emergency (ER) | payer SELFPAY ==
[2024-06-25 09:08] LABS: BASOPHILS PERCENT AUTO 0.5 % (0.0-1.0); EOSINOPHILS PERCENT AUTO 4.4 % (1.0-3.0); HEMATOCRIT 46.4 % (40.0-54.0); HEMOGLOBIN 16.1 g/dL (14.0-18.0); LYMPHOCYTES PERCENT AUTO 31.5 % (20.5-50.1); MEAN CORPUSCULAR HEMOGLOBIN 32.5 pg (27.0-34.0); MEAN CORPUSCULAR HGB CONC 34.7 g/dL (33.0-35.0); MEAN CORPUSCULAR VOLUME 93.5 fL (80-100); MONOCYTES PERCENT AUTO 10.4 % (2-8); NEUTROPHILS PERCENT AUTO 53.2 % (42.2-75.2); PLATELET COUNT,PLT 241 10^3/uL (150-450); RED BLOOD CELL COUNT 4.96 10^6/uL (4.6-6.2); WHITE BLOOD CELL COUNT,WBC 9.3 10^3/uL (5.0-10.0)
[2024-06-25 09:16] VITALS: PULSE 57
[2024-06-25] MEDS: Aspirin 81 MG Tab.Chew PO ONE (09:20)
[2024-06-25] MEDS: Nitroglycerin 0.4 MG Tab.SL SL PRN (09:20)
[2024-06-25 09:28] LABS: A/G RATIO 1.3; ALBUMIN 4.2 g/dL (3.4-5.0); ANION GAP 12.9 mEq/L (7-13); BILIRUBIN TOTAL 0.9 mg/dL (0.2-1.0); BUN/CREATININE RATIO 9.3 (No establ ref range); CALCIUM 9.7 mg/dL (8.5-10.1); CREATININE 1.07 mg/dL (0.70-1.30); EST CRCL DRUG DOSING (CG) 79.57 mL/min; POTASSIUM,K 3.9 mmol/L (3.5-5.1); PROTEIN TOTAL,TP 7.5 g/dL (6.4-8.2)
[2024-06-25 09:30] VITALS: BP 130/87
[2024-06-25] MEDS: Nitroglycerin/D5W 25 MG/250 ML BOTTLE IV SCH (10:06)
== END 2024-06-25 12:00 ==
LOC: DL.ED 08:45
DX: I20.9 Angina pectoris, unspecified (principal); I10 Essential (primary) hypertension; F17.200 Nicotine dependence, unspecified, uncomplicated
CPT/HCPCS: 36415; 71045; 80053; 83880; 84484; 85025; 85610; 96365; 96366; 99284; 99285-25; A9270-GY; J2305